=== PATIENT | female | born 2000 | race Caucasian/White ===

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

== ENCOUNTER 2022-09-09 09:08 | Inpatient (IN) ==
[2022-09-09] MEDS ORDERED: OXYTOCIN 30 UNITS/500 ML BAG IV PRN ×2 (09:15→09:49)
[2022-09-09] MEDS ORDERED: LIDOCAINE 1% LOCAL 20 ML VIAL INFIL PRN (09:15)
[2022-09-09] MEDS ORDERED: LACTATED RINGER'S 1,000 ML IV PRN (09:15)
[2022-09-09] MEDS ORDERED: PENICILLIN G POTASSIUM 6 MU in DEXTROSE 5% 250 ML IV STA (09:30)
--- NOTE | 2022-09-09 09:40 | History & Physical Report ---
Date of Service September 09, 2022 Assessment & Plan (1) Encounter for induction of labor: Plan: Patient is a 22 yo at 40+1 WGA presenting to labor and delivery for induction. Blood type: B+, GBS pos (penicillin ordered), rubella immune Plan to start oxytocin and rupture membranes later if necessary Proceed with labor and vaginal delivery Admission and Anticipated Discharge Date Admission Date: September 09, 2022 History of Present Illness Chief Complaint: IOL Primary Care Provider: Natanael Jimenez DO Patient is a 22 yo female currently at 40+1WGA with an LUÍS 09/08/2022 as determined by US who is here for IOL. Her was uncomplicated. Denies timeable or painful contractions; movement present; denies fluid loss; denies bloody show External FHT and external uterine monitors used; category 1 tracing; normal FHT variability Had regular appointments with OB. Labs: 12/2021 Blood type: B+ Antibody screen: neg Hgb: 11.8 (today) Hct: 33.7 (today) WBC: 6.91 (today) Plt: 181 (today) Rubella: immune VDRL/RPR: neg Gonorrhea: neg Chlamydia: neg HIV: neg HbSAg: neg GBS: positive Other screens: cff-DNA: low risk CF: neg per prior SMA: neg per prior Allergies Allergy/AdvReac Type Severity Reaction Status Date / Time No Known Allergies Allergy Unknown Verified 09/07/22 10:29 Home Medications Medication Instructions Recorded Confirmed Type prenat.vits,saul,lba-hsmn-sbfoh 1 tab PO DAILY 05/10/20 09/07/22 History ferrous sulfate 27 mg iron tablet 27 mg PO DAILY 08/26/22 09/07/22 History Patient History Medical History ASD (atrial septal defect) defect resolved at age 11 Asthma has inhaler prn Atrial septal defect (normal spontaneous vaginal delivery) Pruritus Varicella vaccination Surgical History History of tonsillectomy as a child [place] teeth extracted Family History Father Hypertension Asthma Grandfather Cancer Grandmother (Maternal) Breast cancer Mother Asthma Heart disease Denies family history of Ovarian cancer Colorectal cancer Social History Smoking Status: Never smoker Second Hand Exposure: No; Hx Alcohol Use: No Hx Substance Use: No Preferred Language: Swiss Communication Ability: Effective Bureau Chief Required: No Beliefs That Will Affect Care: None marital status: marital status details: Ezio Zhu (21) [phone] Current Living Situation: Spouse Current Living Situation Comment: and children current occupational status: unemployed Feels Safe at Home: Yes Assistive Devices: None Review of Systems Denies fever, chills, sweats. Denies SOB, difficulty breathing, chest pain, palpitations, and chest pressure. Denies breast pain. Denies dysuria. Denies headache or changes in vision. Physical Exam Physical Exam: General: Alert and oriented. No acute distress CV: Regular rate and rhythm. No murmurs. Respiratory: CTA bilaterally. No rhonchi, wheezes, or crackles. No increased work of breathing. Abdomen: Gravid; Soft, nontender upon palpation Pelvic: Dilated 4 cm; Effacement 90%; Station -[address] Rodriguez Lower extremities: No LE edema. No deep calf pain. Michael's negative bilaterally. Results & Data ([facility]) Vital Signs (Past 12 Hours) Vital Signs Pulse BP 09/09/22 09:21 81 116/64 Resident Activity Tracking Resident Involvement: Resident Care Provided Care Provided: OB Delivery
[2022-09-09 09:59] LABS: Hematocrit (blood only) 33.7 % (34.1-44.9); Hemoglobin 11.8 g/dl (12.0-16.0); Mean Corpuscular Hemoglobin 29.1 pg (25.0-34.0); Mean Corpuscular Volume 83.2 fL (80.0-100.0); Mean Platelet Volume 10.5 fL (9.4-12.3); Platelet Count 181 K/uL (130-400); RDW Standard Deviation 38.9 fL (36.4-46.3); Red Blood Count 4.05 M/uL (3.93-5.22); White Blood Count 6.91 K/ul (4.8-10.8)
--- NOTE | 2022-09-09 10:09 | Labor Progress Brief Note ---
Date of Service September 09, 2022 Subjective Presented for induction of labor at 40w1d. Multip with known ripe cervix, no OB c/o on arrival. Group B Strep positive. Assessment & Plan (1) Encounter for induction of labor: Plan: PCN at [facility] to start now, AROM after 2nd dose PCN. Patient for epidural upon request. Partner Ezio at bedside and supportive, would like to cut cord, no other specific plan / requests. (2) Group B Streptococcus carrier, antepartum: Admission and Anticipated Discharge Date Admission Date: September 09, 2022 Physical Exam Genitourinary: Cvx /-2/post/soft FHT Cat 1 [place] rare ctx Membranes intact Vtx palpable Results & Data ([facility]) Vital Signs (Past 12 Hours) Vital Signs Pulse BP 09/09/22 09:21 81 116/64 Coding Level of Care Code None Diagnoses Encounter for induction of labor Z34.90 Group B Streptococcus carrier, antepartum O99.820
[2022-09-09] MEDS ORDERED: fentaNYL citrate 100 MCG/2 ML VIAL ONE (12:02)
[2022-09-09] MEDS ORDERED: ePHEDrine sulfate 50 MG/ML AMP ONE (12:02)
[2022-09-09] MEDS ORDERED: SODIUM CHLORIDE 0.9% INJ 10 ML VIAL ONE (12:02)
[2022-09-09] MEDS ORDERED: LIDOCAINE 2%/EPINEPHRINE 1:200,000 20 ML SDV ONE (12:02)
[2022-09-09] MEDS ORDERED: BUPIVACAINE 0.25% 30 ML VIAL ONE (12:02)
[2022-09-09] MEDS ORDERED: fentaNYL 2MCG/ML ROPIVACAINE 1.25MG/ML 100 ML BAG EPI ONE (12:03)
[2022-09-09] MEDS ORDERED: NALOXONE HCL 0.4 MG/1 ML VIAL/CARP IV PRN (12:05)
[2022-09-09] MEDS ORDERED: NALBUPHINE HCL INJ 10 MG/ML AMP IV PRN (12:05)
[2022-09-09] MEDS ORDERED: diphenhydrAMINE 50 MG/ML VIAL IV PRN (12:05)
[2022-09-09] MEDS ORDERED: NALOXONE HCL 1 MG in SODIUM CHLORIDE 0.9% 1000ML 1,000 ML IV PRN (12:05)
[2022-09-09] MEDS ORDERED: fentaNYL 2MCG/ML ROPIVACAINE 1.25MG/ML 100 ML BAG EPI PRN (12:05)
[2022-09-09] MEDS ORDERED: ePHEDrine sulfate 50 MG/ML AMP IV PRN (12:05)
--- NOTE | 2022-09-09 12:05 | Anesthesiology Consultation ---
Date of Service September 09, 2022 Assessment & Plan (1) Encounter for pre-operative examination: Chart Review Chart Review: Patient NOT seen in Pre Admission Testing and Acceptable Risk for Labor Epidural Consults Requested none History Height/Weight Height: 5 ft 4 in Weight: 87.997 kg Allergies Allergy/AdvReac Type Severity Reaction Status Date / Time No Known Allergies Allergy Unknown Verified 09/09/22 11:10 Medications Home Medications Medication Instructions Recorded Confirmed Last Taken prenat.vits,saul,ecd-jcig-edjwu 1 tab PO DAILY 05/10/20 09/09/22 09/08/22 09:00 ferrous sulfate 27 mg iron tablet 27 mg PO DAILY 08/26/22 09/09/22 09/08/22 09:00 Active Medications Generic Name Dose Route Start Last Admin Trade Name Freq PRN Reason Stop Dose Admin Lactated Ringer's 1,000 mls @ 125 mls/hr 09/09/22 09:15 09/09/22 11:55 Lr IV 09/11/22 09:14 999 mls/hr .Q8H PRN Infusion L&D Protocol Protocol Oxytocin 30 units in 500 mls @ 5 mls/hr 09/09/22 09:49 09/09/22 11:39 Pitocin IV 09/11/22 09:48 0.3 units/hr .Q24H PRN 5 mls/hr Labor Induction/Augmentation Titration Protocol 0.3 UNITS/HR Past Medical History Medical History ASD (atrial septal defect) defect resolved at age 11 Asthma has inhaler prn Atrial septal defect (normal spontaneous vaginal delivery) Pruritus Varicella vaccination Past Family History Family History Father Hypertension Asthma Grandfather Cancer Grandmother (Maternal) Breast cancer Mother Asthma Heart disease Denies family history of Ovarian cancer Colorectal cancer Past Surgical History Surgical History History of tonsillectomy as a child [place] teeth extracted Social History Smoking Status: Never smoker Hx Alcohol Use: No Hx Substance Use: No substance use type: does not use Physical Exam Vital Signs Last Vital Signs Temp 98.2 F 09/09/22 10:30 Pulse 81 09/09/22 09:21 Resp 20 09/09/22 10:30 BP 116/64 09/09/22 09:21 Testing Laboratory Results 09/09/22 09:46
[2022-09-09] MEDS ORDERED: PENICILLIN G POTASSIUM 3 MU in DEXTROSE 5% 100 ML IV PRN (12:16)
--- NOTE | 2022-09-09 13:40 | Delivery Summary ---
Vaginal Delivery Summary Date of Service September 09, 2022 Vaginal Delivery Summary DIAGNOSES: 1. Chen intrauterine at 40w1d gestation. 2. Induction of Labor. 3. Group B Streptococcus Pos. PROCEDURE: Spontaneous vaginal delivery without laceration. SURGEON: Delphine Rodriguez MD. WOOD BUCKER: None. ESTIMATED BLOOD LOSS: 200 mL. COMPLICATIONS: None. PLACENTA: Spontaneous and intact with a 3-vessel cord. DISPOSITION: Stable to labor and delivery. DESCRIPTION: The patient pushed well and brought the head to in DOA position. The infant's head was allowed to deliver with contraction force and no further active pushing, with the perineum protected during this time. There was no nuchal cord. The right shoulder was anterior, and the left hand presented compound alongside the cheek. The shoulders and body delivered without any difficulty, and the infant was placed on the maternal abdomen. It was vigorous and moving all extremities, and making respiratory efforts. The cord was doubly clamped by the MD and then cut by the FOB. The placenta delivered spontaneously and was noted to be intact and with a 3VC. The cervix, vagina and perineum were examined and were found to be without defect requiring repair. The fundus was firm and lochia minimal immediately after delivery. [facility] Vaginal Delivery Charge Vaginal Delivery Codes: 86708 global code for the antepartum, delivery, and post-
[2022-09-09] MEDS ORDERED: BENZOCAINE 20% AER SPR 82.5 GM CAN EXT PRN (13:55)
[2022-09-09] MEDS ORDERED: ACETAMINOPHEN 325 MG TAB PO PRN (13:55)
[2022-09-09] MEDS ORDERED: bisacodyL 10 MG SUPP PR PRN (13:55)
[2022-09-09] MEDS ORDERED: oxyCODONE/ACETAMINOPHEN 5mg/325mg TAB PO PRN (13:55)
[2022-09-09] MEDS ORDERED: HYDROCORTISONE ACETATE 25 MG SUPP PR PRN (13:55)
[2022-09-09] MEDS ORDERED: DIPHTHERIA/TETANUS/PERTUSSIS 0.5 ML SYR/VIAL IM ONE (13:55)
--- NOTE | 2022-09-09 14:37 | Anesthesia Procedure Note ---
Date of Service September 09, 2022 Anesthesia Post Epidural Note Vital Signs Vital Signs: Temp Pulse Resp BP Pulse Ox 98.2 F 70 16 114/67 100 09/09/22 10:30 09/09/22 14:21 09/09/22 14:05 09/09/22 14:21 09/09/22 12:57 Notes Mental Status: alert / awake / arousable and participated in evaluation Nausea / Vomiting: adequately controlled Pain: adequately controlled Airway Patency, RR, SpO2: stable & adequate BP & HR: stable & adequate Hydration State: stable & adequate Neuraxial Anesthesia: was administered and sensory block is resolving Anesthetic Complications: no major complications apparent and Pt Satisfied with anesthetic care Epidural: Removed without complications and With tip intact
[2022-09-09] MEDS: DOCUSATE SODIUM 100 MG CAP PO SCH (20:33)
[2022-09-09] MEDS: IBUPROFEN 600 MG TAB PO PRN (20:33)
[2022-09-10] MEDS: IBUPROFEN 600 MG TAB PO PRN ×3 (01:33→23:17)
--- NOTE | 2022-09-10 05:30 | Obstetrical Progress Note ---
Date of Service <Briseida Rodriguez DO Rosanne - Last Filed: 09/10/22 06:18> September 10, 2022 Assessment & Plan <Briseida LeonDO michel - Last Filed: 09/10/22 06:18> (1) care following vaginal delivery: Patient is PPD 1 s/p and doing well. - Eating well, voiding well, ambulating well - Vitals reviewed and within normal limits - Pain well controlled with analgesics - OOB, ambulation, diet progression as tolerated - Blood type: B+, GBS pos (w/o adequate treatment?) rubella immune - Plan to discharge tomorrow - After discharge, 6 week follow up with Dr. Rodriguez <Delphine Rodriguez MD - Last Filed: 09/10/22 07:18> (1) care following vaginal delivery: Subjective <Briseida LeonDO michel - Last Filed: 09/10/22 06:18> Patient is a 22 yo female who is now PPD #1 following spontaneous vaginal delivery at 40+1 weeks. Reports feeling well this morning. She endorses abdominal cramping and 4-5/10 pain well managed on analgesics. Voiding without issue. Tolerating regular meals overnight and able to ambulate some. She has passed gas without bowel movements. Persistent lochia with some improvement this morning. Currently trying to breast feed but she explains that the baby "cracked open my nipples" so she is currently supplementing with bottles. Review of Systems Denies fever, chills, sweats. Denies SOB, difficulty breathing, chest pain, palpitations, and chest pressure. Endorses bilateral nipple pain. Denies dysuria. Endorses slight headaches that she attributes to lack of sleep. Denies changes in vision. Physical Exam <Briseida LeonDO michel - Last Filed: 09/10/22 06:18> General: Alert and oriented. No acute distress. CV: Regular rate and rhythm. No murmurs. Respiratory: CTA bilaterally. No rhonchi, wheezes, or crackles. No increased work of breathing. Abdomen: Positive bowel sounds. Soft, nontender, non distended. Uterus: Fundus firm and palpable 3 cm below the umbilicus. Lower extremities: No LE edema. No deep calf pain. Michael's negative bilaterally. Results & Data ([facility]) <Briseida Lay DO - Last Filed: 09/10/22 06:18> Vital Signs (Past 12 Hours) Vital Signs Temp Pulse Resp BP Pulse Ox O2 Del Method 09/10/22 04:30 36.4 C L 67 16 100/62 98 Room Air 09/09/22 23:50 36.4 C L 69 16 110/72 97 Room Air 09/09/22 20:30 36.4 C L 71 17 129/76 99 Room Air <Delphine Rodriguez MD - Last Filed: 09/10/22 07:18> Co-Signing Physician Notes Resident Physician Supervision Note: I interviewed and examined the patient. Discussed with Dr. Lay and agree with findings and plan as documented in the note. Any exceptions or clarifications are listed here: [ ] Documented By: Delphine Rodriguez MD, FACOG Resident Activity Tracking <Briseida Lay DO - Last Filed: 09/10/22 06:18> Resident Involvement: Resident Care Provided Care Provided: OB Delivery
[2022-09-10 06:38] LABS: Hemoglobin 10.8 g/dl (12.0-16.0); Mean Corpuscular Hgb Conc 33.8 g/dL (32.0-36.0); Mean Platelet Volume 10.8 fL (9.4-12.3); Platelet Count 150 K/uL (130-400); RDW Coefficient of Variation 13.1 % (11.5-14.5); RDW Standard Deviation 40.2 fL (36.4-46.3); Red Blood Count 3.72 M/uL (3.93-5.22)
[2022-09-10] MEDS: PRENATAL VITAMIN 1 TAB PO SCH (09:09)
[2022-09-10] MEDS: DOCUSATE SODIUM 100 MG CAP PO SCH ×2 (09:10→20:01)
--- NOTE | 2022-09-10 11:48 | Ultrasound Report ---
BILATERAL LOWER EXTREMITY VENOUS DOPPLER HISTORY: Acute pain and swelling of the lower legs bilateral calf pain - day 1 COMPARISON STUDY: None. FINDINGS: There is normal compressibility, flow, and augmentation within the bilateral lower extremit y deep venous systems. IMPRESSION: No DVT within the right or left lower extremity. ACT 112: Negative or not required by law. Electronically signed by: Panda Farah M.D. 09/10/2022 11:46 AM
[2022-09-10] MEDS ORDERED: bisacodyL 5 MG TABEC PO SCH (20:00)
--- NOTE | 2022-09-11 06:18 | Obstetrical Progress Note ---
Date of Service <Briseida LeonDO michel - Last Filed: 09/11/22 06:41> September 11, 2022 Assessment & Plan <Briseida LeonariannevincentDO - Last Filed: 09/11/22 06:41> (1) care following vaginal delivery: Patient is PPD 2 s/p and doing well. - Eating well, voiding well, ambulating well - Vitals reviewed and within normal limits - Pain well controlled with analgesics - OOB, ambulation, diet progression as tolerated - Blood type: B+, GBS pos, rubella immune - Plan to discharge today - After discharge, 6 week follow up with Dr. Rodriguez <Sussy Olivarez MD, FACOG - Last Filed: 09/11/22 09:00> (1) care following vaginal delivery: Subjective <Briseida LeonDO michel - Last Filed: 09/11/22 06:41> Patient is a 22 yo female who is now PPD #2 following spontaneous vaginal delivery at 40+1 weeks. Reports feeling well this morning. She denies abdominal cramping and 1/10 pain well managed on analgesics. Voiding without issue. Tolerating regular meals overnight and able to ambulate some. She has passed gas without bowel movements. Persistent lochia with much improvement this morning. Currently breast feeding. Review of Systems Denies fever, chills, sweats. Denies SOB, difficulty breathing, chest pain, palpitations, and chest pressure. Denies breast pain. Denies dysuria. Denies headache or changes in vision. Physical Exam <Briseida LeonDO michel - Last Filed: 09/11/22 06:41> General: Alert and oriented. No acute distress. CV: Regular rate and rhythm. No murmurs. Respiratory: CTA bilaterally. No rhonchi, wheezes, or crackles. No increased work of breathing. Abdomen: Positive bowel sounds. Soft, nontender, non distended. Uterus: Fundus firm and palpable 3 cm below the umbilicus. Lower extremities: No LE edema. No deep calf pain. Michael's negative bilaterally. Results & Data ([facility]) <Briseida PaulaSteph Lay DO - Last Filed: 09/11/22 06:41> Vital Signs (Past 12 Hours) Vital Signs Temp Pulse Resp BP Pulse Ox O2 Del Method 09/10/22 23:10 36.5 C 71 16 119/76 100 Room Air 09/10/22 18:59 36.7 C 66 18 110/72 99 Room Air <Sussy Olivarez MD, FACOG - Last Filed: 09/11/22 09:00> Co-Signing Physician Notes Resident Physician Supervision Note: I interviewed and examined the patient. Discussed with Dr. Lay and agree with findings and plan as documented in the note. Any exceptions or clarifications are listed here: [None] Documented By: Sussy Olivarez MD, FACOG Resident Activity Tracking <Briseida Lay DO - Last Filed: 09/11/22 06:41> Resident Involvement: Resident Care Provided Care Provided: OB Delivery
[2022-09-11 06:21] LABS: Hematocrit (blood only) 32.5 % (34.1-44.9); Hemoglobin 11.1 g/dl (12.0-16.0)
[2022-09-11] MEDS: PRENATAL VITAMIN 1 TAB PO SCH (08:48)
[2022-09-11] MEDS: DOCUSATE SODIUM 100 MG CAP PO SCH (08:48)
== END 2022-09-11 11:40 | disposition home or self-care (01) | DRG 807 ==
LOC: 4S1 09:08 → 4E2 16:32
DX: Z3A.40 40 weeks gestation of pregnancy; Z37.0 Single live birth; O99.824 Streptococcus B carrier state complicating childbirth

== ENCOUNTER 2025-09-17 14:46 | Inpatient (IN) ==
[2025-09-17] MEDS ORDERED: CALCIUM CARBONATE 500 MG CHEWABLE TAB PO PRN ×2 (16:40→20:26)
--- NOTE | 2025-09-17 16:49 | History & Physical Report ---
Date of Service September 17, 2025 Assessment & Plan (1) contractions: Plan: Observation History of Present Illness Chief Complaint: Intrauterine 36 weeks 2 days Contractions Primary Care Provider: ELLIE Shaver Patient is a 25-year-old 4 para 3 she is in good general health has been well dated with a first trimester ultrasound. Her due date is 10/13/2025. has been complicated by vaginal bleeding approximately 2 to 3 months prior to today. She was also seen 6 days prior to this admission on [facility] for contractions and dark discharge. At that time she had a reactive NST. Her labor was stopped using a combination of IV fluids terbutali ne and Procardia. She was given Celestone 12 mg at the time of admission. And then another 12 mg the next day. She was seen earlier in the day by the nurse practitioner at [facility]. States she has been having strong contractions since about 10:30 AM the day of admission and that was associated with some increase in vaginal discharge. She was brought up to [facility] placed on the monitor. heart rate tracing looked good. She had a reactive NST. We did an amnio sure which was negative. We also did a sterile speculum exam with fundal pressure and could not demonstrate any leakage of amniotic fluid. We proceeded to observation with intermittent monitoring. The day of admission she had a vaginal beta strep screening done. Results were not back Allergies Allergy/AdvReac Type Severity Reaction Status Date / Time No Known Allergies Allergy Unknown Verified 02/15/23 08:50 Past Med/Surg History Problem List contractions (Acute) Shortness of breath (Acute) Chest pain (Acute) Premature labor affecting fourth Supervision of normal intrauterine in multigravida Encounter for anatomic survey Elevated blood pressure affecting in third trimester, antepartum 38 weeks gestation of False labor after 37 completed weeks of gestation Medical History Group B Streptococcus carrier, antepartum Encounter for pre-operative examination (normal spontaneous vaginal delivery) 2018,2020, 2021 Pruritus Varicella vaccination Asthma has inhaler prn Atrial septal defect ASD (atrial septal defect) defect resolved at age 11 Surgical History History of tonsillectomy as a child [place] teeth extracted Family History Father Hypertension Asthma Grandfather Cancer Grandmother (Maternal) Breast cancer Mother Asthma Heart disease Denies family history of Ovarian cancer Colorectal cancer Social History (Updated 09/12/25 @ 18:39 by Katie Harmon RN) Smoking Status: Never smoker Second Hand Exposure: No; Do You Dip or Chew Tobacco: No; Hx Alcohol Use: No Hx Substance Use: No Preferred Language: Dutch Communication Ability: Effective Visual Impairment: No Limitations Rn Recovery Required: No Beliefs That Will Affect Care: None marital status: Single marital status details: Jayro Cleary (27) [phone] Current Living Situation: Significant Other Current Living Situation Comment: boyfriend and children current occupational status: employed current occupation: [employer] Feels Safe at Home: Yes Safety Concerns: Feels Safe At This Time Diet: regular Assistive Devices: None Physical Exam Physical Exam: Appeared to be well-developed well-nourished 25-year-old white female alert oriented x 3 cooperative in no acute distress. Patient appeared her stated age. Heart had a regular rhythm S1 and S2 were normal. Lungs are clear to auscultation percussion. Oral hygiene was good. Extraocular movements were intact. Abdomen was nontender. Contractions were palpable every 5 minutes. Abdominal size was consistent with a 36 to 37 weeks gestation. Speculum exam revealed a normal-appearing cervix. No fluid accumulated in this speculum. Fundal pressure was used to try to produce amniotic fluid. Pelvic exam revealed a vertex presentation cervix to be posterior uneffaced. -3 station. No calf tenderness. Results & Data Results & Data Vital Signs (Past 12 Hours) Vital Signs Temp Pulse Resp BP 09/17/25 15:27 92 H 134/66 09/17/25 15:16 93 H 122/61 09/17/25 15:07 81 127/64 09/17/25 15:02 36.6 C 84 18 130/62 09/17/25 14:54 84 130/62
[2025-09-17] MEDS ORDERED: OXYTOCIN 30 UNITS/NSS 30 UNITS/500 ML BAG IV PRN (20:26)
[2025-09-17] MEDS ORDERED: LIDOCAINE 1% LOCAL 20 ML VIAL INFIL PRN (20:26)
[2025-09-17] MEDS: PENICILLIN GK 6 MU in DEXTROSE 5% 250 ML IV STA (21:13)
[2025-09-17 22:02] LABS: Hematocrit (blood only) 31.3 % (37.0-47.0); Hemoglobin 10.4 g/dl (12.0-16.0); Mean Corpuscular Hemoglobin 26.7 pg (25.0-34.0); Mean Corpuscular Volume 80.5 fL (80.0-100.0); Platelet Count 181 K/uL (130-400); RDW Standard Deviation 35.1 fL (36.4-46.3); Red Blood Count 3.89 M/uL (4.20-5.40); White Blood Count 7.83 K/ul (4.8-10.8)
[2025-09-17] MEDS: LACTATED RINGER'S 1,000 ML IV PRN (22:16)
[2025-09-18] MEDS: PENICILLIN GK 3 MU in DEXTROSE 5% 100 ML IV PRN (01:12)
[2025-09-18] MEDS: OXYTOCIN 30 UNITS/NSS 30 UNITS/500 ML BAG IV PRN (01:45)
[2025-09-18] MEDS ORDERED: BUPIVACAINE 0.25% PF 30 ML VIAL EPI PRN (03:22)
[2025-09-18] MEDS ORDERED: LIDOCAINE 2% MPF LOCAL 5 ML VIAL EPI PRN (03:22)
[2025-09-18] MEDS ORDERED: NALOXONE HCL 1 MG in SODIUM CHLORIDE 0.9% 1,000 ML IV PRN (03:22)
[2025-09-18] MEDS ORDERED: NALOXONE HCL 0.4 MG/1 ML VIAL/CARP IV PRN (03:22)
[2025-09-18] MEDS ORDERED: NALBUPHINE HCL INJ 10 MG/ML AMP IV PRN (03:22)
[2025-09-18] MEDS ORDERED: SODIUM CHLORIDE 0.9% PF INJ 10 ML VIAL EPI PRN (03:22)
[2025-09-18] MEDS ORDERED: ROPIVACAINE 0.5% PF 5 MG/ML 20 ML VIAL EPI PRN (03:22)
[2025-09-18] MEDS ORDERED: diphenhydrAMINE 50 MG/ML VIAL IV PRN (03:22)
--- NOTE | 2025-09-18 03:22 | Anesthesiology Consultation ---
Date of Service September 18, 2025 Assessment & Plan (1) Encounter for pre-operative examination: Chart Review Chart Review: Patient NOT seen in Pre Admission Testing and Acceptable Risk for Labor Epidural Consults Requested none History Height/Weight Height: 5 ft 5 in Weight: 90.265 kg Allergies Allergy/AdvReac Type Severity Reaction Status Date / Time No Known Allergies Allergy Unknown Verified 02/15/23 08:50 Medications Home Medications Medication Instructions Recorded Confirmed Last Taken 1 tab PO DAILY 09/17/25 09/17/25 Unknown Active Medications Generic Name Dose Route Start Last Admin Trade Name Freq PRN Reason Stop Dose Admin Lactated Ringer's 1,000 mls @ 125 mls/hr 09/17/25 20:26 09/17/25 22:42 Lr IV 09/19/25 20: 0 mls/hr .Q8H PRN Infusion L&D Protocol Protocol Penicillin G Potassium 3 mu/ 106 mls @ 100 mls/hr 09/17/25 23:26 09/18/25 01:12 Dextrose IV 09/27/25 23:25 100 mls/hr Q4H PRN Administration GBS(+) Until Delivery Oxytocin 30 units in 500 mls @ 6 mls/hr 09/17/25 23:55 09/18/25 02:45 Pitocin 30 Units/Nss IV 09/19/25 23:54 0.36 units/hr .Q24H PRN 6 mls/hr Labor Induction/Augmentation Titration Protocol 0.36 UNITS/HR Past Medical History Medical History Group B Streptococcus carrier, antepartum Encounter for pre-operative examination (normal spontaneous vaginal delivery) 2018,2020, 2021 Pruritus Varicella vaccination Asthma has inhaler prn Atrial septal defect ASD (atrial septal defect) defect resolved at age 11 Past Family History Family History Father Hypertension Asthma Grandfather Cancer Grandmother (Maternal) Breast cancer Mother Asthma Heart disease Denies family history of Ovarian cancer Colorectal cancer Past Surgical History Surgical History History of tonsillectomy as a child [place] teeth extracted Social History Smoking Status: Never smoker Do You Dip or Chew Tobacco: No Hx Alcohol Use: No Hx Substance Use: No substance use type: does not use Physical Exam Vital Signs Last Vital Signs Temp 97.7 F 09/18/25 01:11 Pulse 81 09/18/25 02:46 Resp 20 09/17/25 19:35 BP 119/67 09/18/25 02:46 Testing Laboratory Results 09/17/25 21:00
[2025-09-18] MEDS: LIDOCAINE 2%/EPINEPHRINE 1:200,000 20 ML PF EPI STA (03:39)
[2025-09-18] MEDS: BUPIVACAINE 0.25% PF 30 ML VIAL EPI STA (03:39)
[2025-09-18] MEDS: fentANYL 2 MCG/ML BUPIVacaine 0.125%-NSS 100ML BAG EPI PRN (03:40)
[2025-09-18] MEDS: BUPIVACAINE 0.25% PF 30 ML VIAL ONE (04:10)
[2025-09-18] MEDS: fentANYL 2 MCG/ML BUPIVacaine 0.125%-NSS 100ML BAG ONE (04:11)
[2025-09-18] MEDS: LIDOCAINE 2%/EPINEPHRINE 1:200,000 20 ML PF ONE (04:11)
[2025-09-18] MEDS: SODIUM CHLORIDE 0.9% PF INJ 10 ML VIAL ONE (04:11)
[2025-09-18] MEDS: SODIUM CHLORIDE 0.9% PF INJ 10 ML VIAL EPI STA (04:11)
[2025-09-18] MEDS: ONDANSETRON INJ 2 MG/ML 2 ML VIAL ONE (07:15)
[2025-09-18] MEDS: METHYLERGONOVINE MALEATE 0.2 MG/ML AMP IM ONE (08:39)
[2025-09-18] MEDS ORDERED: HYDROCORTISONE ACETATE 25 MG SUPP PR PRN (08:47)
[2025-09-18] MEDS ORDERED: ACETAMINOPHEN W/CODEINE #3 1 TAB PO PRN (08:47)
[2025-09-18] MEDS ORDERED: ACETAMINOPHEN 325 MG TAB PO PRN (08:47)
[2025-09-18] MEDS ORDERED: DIPHTHER/TETAN/PERTUS Vaccine (Tdap, Adol/Adult) 0.5mL IM ONE (08:47)
[2025-09-18] MEDS ORDERED: OXYTOCIN 30 UNITS/NSS 30 UNITS/500 ML BAG IV PRN (08:47)
--- NOTE | 2025-09-18 08:52 | Delivery Summary ---
Vaginal Delivery Summary Date of Service September 18, 2025 Vaginal Delivery Summary Patient is a 4 para 4 followed in the office for care and delivery. Well dated with a first trimester ultrasound. She delivered at 36 weeks 3 days gestation. was complicated by a vaginal bleed in the third trimester. She then was seen a week prior to admission with symptoms of premature labor. At that time she was placed on a monitor she was given IV fluids terbutaline and Procardia to stop her labor. She was also given 2 doses of Celestone 12 mg by 24 hours. She then returned 6 days later in early labor. She had had a beta strep culture at the office the results were not back. There was question of ruptured membranes. Rupture membranes could not be verified. AmniSure was negative and spec exam was also negative. However the patient made spontaneous change in her cervix from approximately 1 cm to 3 cm. At this point she was deemed to be in labor. She was then given IV penicillin. After her second dose of IV penicillin she was augmented with IV Pitocin. She was also received epidural for pain control. Membranes were ruptured surgically at about 5 cm. She went to full dilatation with Pitocin augmentation. Pushed out a live male infant with 1 push. Infant was delivered via direct occiput anterior position over an intact perineum. There were no lacerations on the perineum. With IV Pitocin running the placenta was removed intact. She was given a dose of IM Methergine. And the quantitative blood loss was 50 mL. Patient tolerated delivery well
--- NOTE | 2025-09-18 09:17 | Anesthesia Procedure Note ---
Date of Service September 18, 2025 Anesthesia Post Epidural Note Vital Signs Vital Signs: Temp Pulse Resp BP Pulse Ox 37.0 C 89 16 110/55 L 98 09/18/25 09:00 09/18/25 09:06 09/18/25 09:00 09/18/25 09:06 09/18/25 08:47 Notes Mental Status: alert / awake / arousable and participated in evaluation Patient Amnestic to Procedure: No Nausea / Vomiting: adequately controlled Pain: adequately controlled Airway Patency, RR, SpO2: stable & adequate BP & HR: stable & adequate Hydration State: stable & adequate Neuraxial Anesthesia: was administered and sensory block is resolving Anesthetic Complications: no major complications apparent and Pt Satisfied with anesthetic care Epidural: Removed without complications and With tip intact
[2025-09-18] MEDS: IBUPROFEN 600 MG TAB PO PRN (09:23)
[2025-09-18] MEDS: ACETAMINOPHEN 325 MG TAB PO PRN (09:24)
[2025-09-18] MEDS: BENZOCAINE 20% SPRY 85 APPLN/85 GM CAN EXT PRN (09:24)
[2025-09-18] MEDS ORDERED: METHYLERGONOVINE MALEATE 0.2 MG/ML AMP IM STA (09:44)
[2025-09-18] MEDS: DOCUSATE SODIUM 100 MG CAP PO SCH (20:24)
[2025-09-19] MEDS: ACETAMINOPHEN 325 MG TAB PO PRN (04:29)
[2025-09-19 06:33] LABS: Hematocrit (blood only) 32.6 % (37.0-47.0); Hemoglobin 10.4 g/dl (12.0-16.0); Mean Corpuscular Hemoglobin 25.8 pg (25.0-34.0); Mean Corpuscular Volume 80.9 fL (80.0-100.0); Platelet Count 211 K/uL (130-400); RDW Standard Deviation 35.6 fL (36.4-46.3); Red Blood Count 4.03 M/uL (4.20-5.40); White Blood Count 9.61 K/ul (4.8-10.8)
[2025-09-19] MEDS: PRENATAL VITAMIN 1 TAB PO SCH (07:57)
--- NOTE | 2025-09-19 09:27 | Obstetrical Progress Note ---
Date of Service September 19, 2025 Assessment & Plan Admission and Anticipated Discharge Date Admission Date: September 17, 2025 Subjective Patient is seen and examined. She feels well, no complaints. Ambulating without dizziness Voiding without difficulty Tolerating regular diet with out N&V Bleeding is minimal No fever/ chills/ CP/ SOB/ N&V/ Leg pain Bottle feeding without problems Vital Signs Temp Pulse Resp BP Pulse Ox O2 Del Method 09/19/25 08:00 36.4 C L 74 18 107/68 100 Room Air 09/19/25 04:00 36.6 C 72 16 99/67 L 98 Room Air 09/19/25 00:07 36.6 C 64 16 86/55 L 97 Room Air Lab Results 09/17/25 09/17/25 09/19/25 Range/Units 18:59 21:00 06:10 WBC 7.83 9.61 (4.8-10.8) K/ul RBC 3.89 L 4.03 L (4.20-5.40) M/uL Hgb 10.4 L 10.4 L (12.0-16.0) g/dl Hct 31.3 L 32.6 L (37.0-47.0) % MCV 80.5 80.9 (80.0-100.0) fL MCH 26.7 25.8 (25.0-34.0) pg MCHC 33.2 31.9 L (32.0-36.0) g/dL RDW Std Deviation 35.1 L 35.6 L (36.4-46.3) fL RDW Coeff of Karla 12.0 12.2 (11.5-14.5) % Plt Count 181 211 (130-400) K/uL MPV 11.0 10.7 (9.4-12.4) fL Amniotic Protein NEG Treponema pallidum Ab Negative (Negative) PE: General: Alert, orientedx3, NAD Abd: soft, NT, fundus firm, below Umbilicus Perineum intact, Lochia rubra minimal Ext; NT, no edema AP: 25 yo s/p , PTL&D, ppd# 1 VSS Afebrile doing well Continue routine care All questions were answered D/C home tomorrow Results & Data Vital Signs (Past 12 Hours) Vital Signs Temp Pulse Resp BP Pulse Ox O2 Del Method 09/19/25 08:00 36.4 C L 74 18 107/68 100 Room Air 09/19/25 04:00 36.6 C 72 16 99/67 L 98 Room Air 09/19/25 00:07 36.6 C 64 16 86/55 L 97 Room Air
[2025-09-19 23:39] VITALS: TEMP 98.2
[2025-09-20 07:14] LABS: Hematocrit (blood only) 32.9 % (37.0-47.0); Hemoglobin 10.4 g/dl (12.0-16.0)
--- NOTE | 2025-09-20 09:43 | Obstetrical Progress Note ---
Date of Service September 20, 2025 Subjective Ambulation: ambulating normally Voiding: no voiding problems Passing Gas:: Yes Diet Tolerance:: regular diet Lochia:: Small Feeding Type:: breast feeding Current Pain Level(1-10): 0 doing well. plans for d/c Physical Exam Constitutional WD/WN, vitals as above Gastrointestinal (Abdomen) Inspection/Auscultation: abdomen normal to inspection Musculoskeletal Extremities: extremities normal to inspection Skin no rashes, warm and dry Neurologic patellar DTR's 2+ bilat, sensation intact Psychiatric A+Ox3, euthymic affect Results & Data Vital Signs (Past 12 Hours) Vital Signs Temp Pulse Resp BP Pulse Ox O2 Del Method 09/19/25 23:37 36.8 C 76 16 107/73 97 Room Air Laboratory Results 09/17/25 09/17/25 09/19/25 18:59 21:00 06:10 WBC 7.83 9.61 RBC 3.89 L 4.03 L Hgb 10.4 L 10.4 L Hct 31.3 L 32.6 L MCV 80.5 80.9 MCH 26.7 25.8 MCHC 33.2 31.9 L RDW Std Deviation 35.1 L 35.6 L RDW Coeff of Karla 12.0 12.2 Plt Count 181 211 MPV 11.0 10.7 Amniotic Protein NEG Treponema pallidum Ab Negative 09/20/25 06:35 WBC RBC Hgb 10.4 L Hct 32.9 L MCV MCH MCHC RDW Std Deviation RDW Coeff of Karla Plt Count MPV Amniotic Protein Treponema pallidum Ab
[2025-09-20 10:55] VITALS: RESP 18; O2SAT 98
[2025-09-20 13:17] VITALS: PULSE 79
[2025-09-20 13:24] VITALS: BP 103/64
== END 2025-09-20 18:28 | disposition home or self-care (01) | DRG 807 ==
LOC: OPB 14:46 → 4S1 14:48 → 4E2 09-18 11:42